=== PATIENT | male | born 1945 | race Caucasian/White ===

== ENCOUNTER 2019-07-12 13:07 | Emergency (ER) | payer MEDICARE, SELFPAY ==
[2019-07-12 13:15] VITALS: BP 162/85; PULSE 70; RESP 18; TEMP 36.6; O2SAT 98
--- NOTE | 2019-07-12 13:49 | ED_ITS ---
HPI - Skin/Abscess/Foreign Bdy <KENYON Martinez - Last Filed: 07/12/19 19:44> General Chief complaint: Skin/Abscess/Foreign Body Stated complaint: left hand injury today Time Seen by Provider: 07/12/19 13:21 Source: patient Mode of arrival: Ambulatory Limitations: no limitations History of Present Illness HPI narrative: 74-year-old male presents emergency department for a laceration o janey left palmar aspect of hand with a knife while shucking clams. Patient states his Tdap was last updated this year as he had a recent neck injury. Patient denies any numbness or tingling, denies any difficulty moving his hand. Patient denies any fevers, pus, purulent drainage, nausea, vomiting, diarrhea, or any other concerns. Related Data Allergies Allergy/AdvReac Type Severity Reaction Status Date / Time morphine AdvReac Intermediate ITCHING Verified 07/12/19 13:20 Review of Systems <KENYON Martinez - Last Filed: 07/12/19 19:44> Review of Systems Narrative: REVIEW OF SYSTEMS: GENERAL: Denies fever or chills. HENT: Denies head trauma. EYE: Denies double vision or vision loss. CARDIOVASCULAR: Denies syncope. MUSCULOSKELETAL: Denies weakness, or deformities. INTEGUMENTARY: Complains of left hand laceration, see HPI. NEURO: Denies numbness or tingling. Patient History <KENYON Martinez - Last Filed: 07/12/19 19:44> Social History Smoking Status: Former smoker Smoking Status: Former smoker alcohol intake frequency: 0-2 drinks per day Substance Use Type: marijuana Exam <KENYON Martinez - Last Filed: 07/12/19 19:44> Initial Vital Signs Initial Vital Signs: Vital Signs Temperature 97.8 F 07/12/19 13:15 Pulse Rate 70 07/12/19 13:15 Respiratory Rate 18 07/12/19 13:15 Blood Pressure 162/85 H 07/12/19 13:15 Pulse Oximetry 98 07/12/19 13:15 PHYSICAL EXAMINATION: GENERAL: Well groomed, alert, and cooperative. Answers questions promptly and appropriately. Vital signs noted. HENT: Normocephalic, atraumatic. RESPIRATORY: Normal respiratory rate, trachea midline, airway patent. No stridor, nasal flaring or accessory muscle use. MUSCULOSKELETAL: Normal gait and coordination. Equal tone and mass bilaterally. Equal fiscal accountant strength bilaterally, full range of motion of all fingers against resistance of flexion and extension of left hand. EXTREMITIES: CMS intact. Moves all extremities. SKIN: Warm, dry, soft, appropriate color for ethnicity. 8cm clean linear laceration noted to left proximal ulnar palm of hand. Small amount of adipose tissue noted. Bleeding controlled with pressure. Wound was irrigated and sutured as noted above. No foreign bodies identified. NEURO: Alert and Oriented X 3. Good coordination. PSYCH: Appropriate affect and mood. <Joselo Márquez MD - Last Filed: 07/13/19 15:20> Initial Vital Signs Initial Vital Signs: Vital Signs Temperature 97.8 F 07/12/19 13:15 Pulse Rate 70 07/12/19 13:15 Respiratory Rate 18 07/12/19 13:15 Blood Pressure 162/85 H 07/12/19 13:15 Pulse Oximetry 98 07/12/19 13:15 Procedures <KENYON Martinez - Last Filed: 07/12/19 19:44> Laceration Repair Laceration 1: Site: upper extremity Side (If applicable): left Size (cm): 8 Description: linear Depth: simple, single layer Local Anesthetic: lidocaine 1% and with bicarb Amount of anesthesia used (mL): 6 Pre-repair: wound explored and irrigated extensively (With 200ml of NS) Skin layer closed with: nylon Size (cm): 5-0 Number of sutures: 6 Technique: simple, interrupted Course <KENYON Martinez - Last Filed: 07/12/19 19:44> Course Course Narrative: Wound dressed with bacitracin, gauze placed on wound by nursing. Orders Ordered: Discontinued Medications Bacitracin (Bacitracin) 1 applic TOP NOW ONE Stop: 07/12/19 13:46 Last Admin: 07/12/19 14:29 Dose: 1 applic Documented by: CARY Lidocaine/Sodium Bicarbonate (Buffered Lidocaine 10 Ml Syr) 10 ml INJ NOW ONE Stop: 07/12/19 13:46 Last Admin: 07/12/19 14:29 Dose: 10 ml Documented by: CARY Vital Signs Vital signs: Vital Signs - 8 hr 07/12/19 13:15 07/12/19 14:36 Temperature 97.8 F Pulse Rate 70 68 Respiratory Rate 18 16 Blood Pressure 162/85 H 149/76 H Pulse Oximetry 98 99 <Joselo Márquez MD - Last Filed: 07/13/19 15:20> Orders Ordered: Discontinued Medications Bacitracin (Bacitracin) 1 applic TOP NOW ONE Stop: 07/12/19 13:46 Last Admin: 07/12/19 14:29 Dose: 1 applic Documented by: CARY Lidocaine/Sodium Bicarbonate (Buffered Lidocaine 10 Ml Syr) 10 ml INJ NOW ONE Stop: 07/12/19 13:46 Last Admin: 07/12/19 14:29 Dose: 10 ml Documented by: CARY Vital Signs Vital signs: Vital Signs - 8 hr 07/12/19 13:15 07/12/19 14:36 Temperature 97.8 F Pulse Rate 70 68 Respiratory Rate 18 16 Blood Pressure 162/85 H 149/76 H Pulse Oximetry 98 99 MDM - Skin/Abscess/Foreign Bdy <KENYON Martinez - Last Filed: 07/12/19 19:44> Medical Records Attestation: I reviewed the patient's medical records. Lab Data Attestation: I reviewed the patient's lab results. MDM Narrative Medical decision making narrative: This is a 74-year-old male presenting to the emergency department with a laceration to left hand. Simple laceration requiring suture repair due to depth and location. Subcu tissue was visualized, wound was irrigated, no foreign bodies visualized. Patient tolerated procedure well. No concern for tendon involvement due to location of wound and full fiscal accountant and finger strength. Patient was counseled extensively to monitor for signs of infection, follow-up instructions discussed. Patient agreed to plan of care verbalized understanding. Discharge Plan Departure Patient Disposition: Home Clinical Impression: Laceration Discharge Date/Time: 07/12/19 14:37 Instructions: DI for Laceration Repair Activity Restrictions/Additional Instructions: Thank you for entrusting me with your care today. As discussed, 6 sutures were placed in your hand, these will need to be removed in approximately 10 days. They can be removed by your primary care provider, any walk-in clinic, Urgent Care, or the emergency department. Please keep the area dry and clean. Keep the dressing in place for the next 24 hours, after that you may remove the dressing and wash the area with soap and water. Apply Neosporin or bacitracin to the area 1 to 2 times a day. Do not soak the laceration and water such as dishwater, hot tub, or any lakes/the ocean. No foreign bodies were found in your wound today. While there is low-risk for infection at this time, retained foreign bodies and infection are always possible with any cut or break in the skin. Please monitor the wound closely and be re-evaluated immediately if you develop any signs of infection such as pus, increasing redness, increasing pain, fevers, or any other concerns. Referrals: Tobi Fernandez MD [Primary Care Provider] -
[2019-07-12] MEDS: LIDO 1%/SOD BICARB 8.4% (10ML) 10 ML SYRINGE INJ (14:29)
[2019-07-12] MEDS: BACITRACIN OINT 0.9 GM PCKT 1 APPLIC TOP (14:29)
[2019-07-12 14:36] VITALS: BP 149/76; PULSE 68; RESP 16; O2SAT 99
== END 2019-07-12 14:37 | disposition home or self-care (01) ==
PROVIDERS: Emergency Provider Nurse Practitioner; PCP Family Medicine
DX: S61.412A Laceration without foreign body of left hand, initial encounter (principal); W26.0XXA Contact with knife, initial encounter
CPT/HCPCS: 12004; 99283

== ENCOUNTER 2019-09-11 18:33 | Emergency (ER) | payer OTHER, SELFPAY ==
[2019-09-11] VITALS (7 sets, daily range): BP systolic 132–158; BP diastolic 72–82; PULSE 60–67; RESP 17–21; TEMP 36.6; O2SAT 97–99; BMI 27.3
--- NOTE | 2019-09-11 18:45 | DI.CT.S_ITS ---
PROCEDURE: CT CHEST ABD PEL W CON INDICATIONS: Trauma TECHNIQUE: After the administration of intravenous contrast, 5 mm thick sections acquired from the lung apices to the symphysis. 2.5 mm thick coronal and sagittal reformats were acquired. Additional 7 mm thick coronal maximum intensity projection (MIP) reformats acquired through the lungs. Optional 10-minute delayed imaging may be performed from the kidneys to the bladder. For radiation dose reduction, the following was used: automated exposure control, adjustment of mA and/or kV according to patient size. COMPARISON: None. FINDINGS: Image quality: Excellent. CHEST: Lungs: No pulmonary contusions or lacerations. Scattered subsegmental atelectasis and/or scarring. No focal consolidation. No pneumothorax or hemothorax. Central and peripheral airways appear patent and normal in caliber. Mediastinum: No mediastinal hematomas. Heart size is normal. Coronary artery calcifications are present. No pericardial effusion. Marked enlargement of the central pulmonary arteries suggestive of chronic pulmonary arterial hypertension. Scattered vascular calcifications seen in the aorta. No mediastinal or hilar adenopathy. Esophagus is normal in caliber. No hiatal hernia. Chest wall: No rib fractures. No subcutaneous emphysema. No axillary or supraclavicular adenopathy. ABDOMEN: Solid organs: Liver is normal in size and enhancement, without lacerations. Gallbladder negative . Biliary system is non-dilated. Pancreas enhances normally, without transection. Spleen is normal in size and enhancement, without lacerations. No adrenal hematomas. Both kidneys enhance normally, without hydronephrosis or lacerations. Peritoneum and bowel: No free fluid or air. Unenhanced bowel loops demonstrate normal wall thickness and caliber. Colonic diverticulosis is seen without evidence of acute complication. Nodes and vessels: No retroperitoneal or mesenteric adenopathy. Aorta and inferior vena cava are normal in size and enhancement. Miscellaneous: No ventral hernias. PELVIS: Genitourinary: Bladder wall thickness is normal. Miscellaneous: No inguinal hernias or adenopathy. Chronic right 11th rib fracture with callus formation Diffuse spondylitic changes and facet arthropathy. IMPRESSION: No acute abnormality seen in the chest, abdomen or pelvis. Coronary artery disease. Enlargement of the central pulmonary arteries suggestive of pulmonary arterial hypertension. Additional chronic and incidental findings as above. Dictated by: Mikel Garland M.D. on 09/11/2019 at 19:39 Approved by: Mikel Garland M.D. on 09/11/2019 at 19:45
--- NOTE | 2019-09-11 18:45 | DI.CT.S_ITS ---
PROCEDURE: CT CERVICAL SPINE WO CON INDICATIONS: Trauma TECHNIQUE: Noncontrast 3 mm thick sections acquired from the skull base to the T4 level. Sagittal and coronal reformats were then constructed. For radiation dose reduction, the following was used: automated exposure control, adjustment of mA and/or kV according to patient size. COMPARISON: None. FINDINGS: Image quality: Excellent. Chronic dens fracture with screw fixation is noted. No definite bridging ossification There is also posterior spinal fixation from the level of C6-T1. Diffuse osteopenia. Multilevel degenerative endplate sclerosis and spurring. Diffuse facet arthropathy. Grade 1 anterolisthesis of C7 on T1 Soft tissues: Prevertebral soft tissues are normal in thickness. No paravertebral hematomas. No apical pneumothoraces. IMPRESSION: No acute fracture identified Postsurgical changes and chronic fractures as detailed above. Dictated by: Mikel Garland M.D. on 09/11/2019 at 19:35 Approved by: Mikel Garland M.D. on 09/11/2019 at 19:39
--- NOTE | 2019-09-11 18:45 | DI.CT.S_ITS ---
PROCEDURE: CT HEAD/BRAIN WO CON INDICATIONS: Trauma TECHNIQUE: Noncontrast 4.5 mm thick angled axial sections acquired from the foramen magnum to the vertex, with coronal and sagittal reformats. For radiation dose reduction, the following was used: automated exposure control, adjustment of mA and/or kV according to patient size. COMPARISON: None. FINDINGS: Image quality: Excellent. A presumed parenchymal hemorrhages seen in the anterior left frontal lobe on image 30/2 measuring 7 mm. Additional areas of parenchymal and cortical surface hyperdensity are seen for example image 26/2 involving the anterior right frontal lobe, and left frontal lobe on image 22/2. There is also presumed extra-axial blood within both sylvian fissures. No midline shift is seen. The basal cisterns appear grossly preserved. Skull and face: Left frontal and periorbital scalp swelling. Sinuses: Visualized sinuses and mastoids are clear. IMPRESSION: Multifocal small areas of acute intraparenchymal and extra-axial hemorrhage as detailed above. Anterior left frontal scalp swelling. Critical findings were personally telephoned and discussed with Dr. Fernández in the emergency department at 1946 hours 09/11/19. Dictated by: Mikel Garland M.D. on 09/11/2019 at 19:30 Approved by: Mikel Garland M.D. on 09/11/2019 at 19:47
--- NOTE | 2019-09-11 18:56 | ED.TRAUMA ---
HPI - Trauma General Chief Complaint: Trauma Stated Complaint: Fall Time Seen by Provider: 09/11/19 18:40 Source: EMS Mode of arrival: EMS Limitations: altered mental status History of Present Illness HPI narrative: 74M former smoker with history of dementia and a recent cervical surgery presents by EMS for of fall with head injury. Patient's medical history is very unclear as he is a poor historian. He was getting off of his boat and had a witnessed fall in which he tripped, fell and struck his head and had a loss of consciousness of upwards of 3 minutes. Upon waking use a bit groggy and confused but after a few minutes return to his baseline, this is confirmed by his nephew who actually saw the fall. He seemed to be in his normal state of health prior to this. He is already in an [place] C-collar given the recent surgery on his neck performed at [facility] per the nephew. Patient has a hematoma on his left forehead and left hip but denies much in the way of any pain elsewhere. He has had no chest pain or shortness of breath. He denies any nausea, vomiting or diarrhea since. He is activated as a modified trauma given a fall with head injury and unclear medical history with prolonged loss of consciousness. Upon arrival he states that maybe he is on a blood thinner but is unsure which 1. Again, he has a very poor historian, his nephew was apparently on the way. Td current as of August hospitalization. NO suspicion of COVID-19, no known exposure to positive persons MD complaint: fall and injury Onset (ago): hour(s) Loss of Consciousness: yes Location: head and face Location - Extremities: Left: hip Severity: moderate Context: fall Associated symptoms: confusion Treatments prior to arrival: cervical collar and spinal immobilization Related Data Allergies Allergy/AdvReac Type Severity Reaction Status Date / Time morphine AdvReac Intermediate ITCHING Verified 07/12/19 13:20 Review of Systems Constitutional Constitutional: Denies chills, Denies fatigue, Denies fever(s), Denies frequent falls, Denies lethargy and Denies weakness Eyes Eyes: Denies change in vision, Denies eye discharge, Denies irritation and Denies loss of vision ENT Ears, Nose, Mouth, and Throat: Denies change in voice, Denies dizziness, Denies neck pain, Denies sore throat and Denies throat swelling Cardiovascular Cardiovascular: Denies chest pain, Denies irregular heart rhythm, Denies lightheadedness, Denies palpitations, Denies dyspnea, Denies dyspnea on exertion and Denies orthopnea Respiratory Respiratory: Denies cough, Denies dyspnea, Denies dyspnea on exertion and Denies wheezing Gastrointestinal Gastrointestinal: Denies abdominal pain, Denies change in bowel habits, Denies diarrhea, Denies nausea and Denies vomiting Musculoskeletal Musculoskeletal: Denies neck pain and Denies numbness Integumentary/Breasts Skin/Breast: Denies pruritus, Denies erythema, Denies rash and Reports wounds Neurologic Neurologic: Denies behavioral changes, Denies confusion, Denies dizziness, Denies frequent falls, Denies loss of vision, Denies numbness and Denies weakness Psychiatric Psychiatric: Denies anxiety, Denies behavioral changes, Denies confusion, Denies depression, Denies homicidal ideation and Denies suicidal ideation Endocrine Endocrine: Denies fatigue, Denies flushing and Denies palpitations Hematologic/Lymphatic Hematologic/Lymphatic: Denies easy bruising Allergic/Immunologic Allergic/Immunologic: Denies urticaria, Denies throat swelling and Denies wheezing Patient History Social History Smoking Status: Former smoker Smoking Status: Former smoker alcohol intake frequency: 0-2 drinks per day Substance Use Type: marijuana Exam Narrative Exam Narrative: GENERAL: [74] year old patient appears stated age. Well-nourished, well-developed patient, in mild distress. HEAD: Contusion/abrasion. No evidence of depressed skull fracture EYES: Pupils equal round and reactive. Extraocular motions intact. No scleral icterus. No injection or drainage. ENT: Nose without bleeding, purulent drainage. No nasal septal hematoma. Throat without erythema, tonsillar hypertrophy or exudate. Airway patent. No hemotympanum NECK: Trachea midline. Non tender CARDIOVASCULAR: Regular rate and rhythm without murmurs, gallops, or rubs. RESPIRATORY: Clear to auscultation. Breath sounds equal bilaterally. No wheezes, rales, or rhonchi. GASTROINTESTINAL: Abdomen soft, non-tender, nondistended. EXTREMITIES: Mild edema, long linear superficial abrasions to left hip. No shortening or external rotation. NV intact. BACK: Nontender without deformity or crepitance. No flank tenderness. NEURO: AOx3. SKIN: No rash or erythema of visible areas Initial Vital Signs Initial Vital Signs: Vital Signs Temperature 98 F 09/11/19 18:59 Pulse Rate 61 09/11/19 18:59 Respiratory Rate 18 09/11/19 18:59 Blood Pressure 151/81 H 09/11/19 18:59 Pulse Oximetry 99 09/11/19 18:59 Scores GCS [place] coma scale eye opening: Spontaneous Veronica coma scale verbal response: Confused [place] coma scale motor response: Obey commands [place] coma scale total score: 14 Course Orders Ordered: ED Orders 09/11/19 18:44 Urine Drug Screen, Rapid Stat EKG-12 Lead Stat 09/11/19 18:45 CT cervical spine wo con Stat CT chest abd pel w con Stat CT head/brain wo con Stat 09/11/19 19:06 Complete Blood Count AUTO DIFF Stat Comprehensive Metabolic Panel Stat Ethanol (ETOH) Stat Lipase Stat Prothrombin Time INR Stat Troponin & CK Cardiac Panel Stat Type and Screen Stat Fentanyl (Sublimaze) 50 mcg IV Q1H PRN PRN Reason: Pain, Severe (7-10) Consultations Consultation #1: called ex- Kika Abad ([phone]). Caregiver. Surgery on C2/C3 August 19 Zully Scott. She helps him make his medical decisions. DNR per her. she has been called with update regarding diagnosis and plan. Consultation #2: call to Trauma at [facility] (Mitch) he has reviewed images, in agreement with plan, requests transfer to ED. call to ED (Live) Prov, happy to accept. Vital Signs Vital signs: Vital Signs - 8 hr 09/11/19 18:59 09/11/19 19:00 09/11/19 19:30 Temperature 98 F Pulse Rate 61 60 61 Respiratory Rate 18 18 18 Blood Pressure 151/81 H 141/72 H 158/77 H Pulse Oximetry 99 97 98 MDM - Trauma Lab Data Result diagrams: 09/11/19 19:06 09/11/19 19:06 Labs: Lab Results 09/11/19 09/11/19 09/11/19 Range/Units 19:06 19:06 19:06 WBC 7.3 (4.5-11.0) X10^3/uL RBC 3.58 L (4.5-5.9) X10^6/uL Hgb 11.5 L (13.5-17.5) g/dL Hct 33.5 L (41-53) % MCV 93.6 (80-100) fL MCH 32.1 (26-34) PG MCHC 34.2 (30-36) % RDW 13.0 (11.6-14.8) % Plt Count 230 (150-400) X10^3/uL Neut % (Auto) 66.8 (50-75) % Lymph % (Auto) 23.4 L (25-40) % [place] % (Auto) 8.4 (3-14) % Eos % (Auto) 0.8 L (2-4) % Baso % (Auto) 0.6 (0-2) % Neut # (Auto) 4900 (6762-1981) /uL Lymph # (Auto) 1700 (7781-6345) /uL [place] # (Auto) 600 (0-900) /uL Eos # (Auto) 100 (0-450) /uL Baso # (Auto) 0 (0-100) /uL PT 11.5 (10.1-12.7) SECONDS INR 1.0 (0.9-1.3) Sodium 135 L (137-145) mmol/L Potassium 4.1 (3.4-5.1) mmol/L Chloride 102 (98-107) mmol/L Carbon Dioxide 29 (22-32) mmol/L BUN 21 H (9-20) mg/dL Creatinine 0.64 L (0.66-1.25) mg/dL Estimated GFR > 60.0 (>60) mL/min BUN/Creatinine Ratio 32.8 H (6-22) Glucose 116 H (80-110) mg/dL Calcium 8.9 (8.4-10.2) mg/dL Total Bilirubin 0.3 (0.2-1.3) mg/dL AST 25 (17-59) IU/L ALT 12 (<50) IU/L Alkaline Phosphatase 83 (38-126) U/L Total Creatine Kinase 95 (55-170) U/L CK-MB (CK-2) TNP CK-MB (CK-2) Rel Index TNP Troponin I < 0.012 (0.01-0.034) ng/mL Total Protein 6.0 L (6.3-8.2) g/dL Albumin 3.8 (3.5-5.0) g/dL Globulin 2.2 (1.7-4.1) g/dL Albumin/Globulin Ratio 1.7 (1.0-2.8) Lipase 114 (23-300) U/L Ethyl Alcohol < 10 ( - 10) mg/dL Blood Type Antibody Screen 09/11/19 Range/Units 19:06 WBC (4.5-11.0) X10^3/uL RBC (4.5-5.9) X10^6/uL Hgb (13.5-17.5) g/dL Hct (41-53) % MCV (80-100) fL MCH (26-34) PG MCHC (30-36) % RDW (11.6-14.8) % Plt Count (150-400) X10^3/uL Neut % (Auto) (50-75) % Lymph % (Auto) (25-40) % [place] % (Auto) (3-14) % Eos % (Auto) (2-4) % Baso % (Auto) (0-2) % Neut # (Auto) (0014-3588) /uL Lymph # (Auto) (4592-0748) /uL [place] # (Auto) (0-900) /uL Eos # (Auto) (0-450) /uL Baso # (Auto) (0-100) /uL PT (10.1-12.7) SECONDS INR (0.9-1.3) Sodium (137-145) mmol/L Potassium (3.4-5.1) mmol/L Chloride (98-107) mmol/L Carbon Dioxide (22-32) mmol/L BUN (9-20) mg/dL Creatinine (0.66-1.25) mg/dL Estimated GFR (>60) mL/min BUN/Creatinine Ratio (6-22) Glucose (80-110) mg/dL Calcium (8.4-10.2) mg/dL Total Bilirubin (0.2-1.3) mg/dL AST (17-59) IU/L ALT (<50) IU/L Alkaline Phosphatase (38-126) U/L Total Creatine Kinase (55-170) U/L CK-MB (CK-2) CK-MB (CK-2) Rel Index Troponin I (0.01-0.034) ng/mL Total Protein (6.3-8.2) g/dL Albumin (3.5-5.0) g/dL Globulin (1.7-4.1) g/dL Albumin/Globulin Ratio (1.0-2.8) Lipase (23-300) U/L Ethyl Alcohol ( - 10) mg/dL Blood Type O Positive Antibody Screen Negative Point of Care Testing Glucose POC [address] scan - head: Radiologist's Impression: Chart Viewer Diagnostics DATE TYPE STATUS REF RANGE/AUTHOR Hx 09/11/19 18:45 DadaMikel 09/11/19 18:45 GarlandMikel 09/11/19 18:45 Mikel Garland Harvey A 74, M0 1945 [facility], Main ED R11 180.34cm 88.904kg BMI: 27.3kg/m? Trauma Search Chart No Data to Display No Data to Display ITCHING ONSET Today 19:30 Charles Abad 74 M 1945 [place] [address] CT Scan Report Signed Patient: Charles Abad AMR#: [id number] : 7Acct:[id number] Age/Sex: 74 / MDate of Service: 09/11/19 Loc: ED Accession Number: [id number] Procedure: CT head/brain wo con Ordering Provider: Michoacano Fernández D.O. PROCEDURE: CT HEAD/BRAIN WO CON INDICATIONS: Trauma TECHNIQUE: Noncontrast 4.5 mm thick angled axial sections acquired from the foramen magnum to the vertex, with coronal and sagittal reformats. For radiation dose reduction, the following was used: automated exposure control, adjustment of mA and/or kV according to patient size. COMPARISON: None. FINDINGS: Image quality: Excellent. A presumed parenchymal hemorrhages seen in the anterior left frontal lobe on image 30/2 measuring 7 mm. Additional areas of parenchymal and cortical surface hyperdensity are seen for example image 26/2 involving the anterior right frontal lobe, and left frontal lobe on image 22/2. There is also presumed extra-axial blood within both sylvian fissures. No midline shift is seen. The basal cisterns appear grossly preserved. Skull and face: Left frontal and periorbital scalp swelling. Sinuses: Visualized sinuses and mastoids are clear. IMPRESSION: Multifocal small areas of acute intraparenchymal and extra-axial hemorrhage as detailed above. Anterior left frontal scalp swelling. Critical findings were personally telephoned and discussed with Dr. Fernández in the emergency department at 1946 hours 09/11/19. Dictated by: Mikel Garland M.D. on 09/11/2019 at 19:30 CT scan - chest: Radiologist's Impression: Chart Viewer Diagnostics DATE TYPE STATUS REF RANGE/AUTHOR Hx 09/11/19 18:45 Dada,Mikel 09/11/19 18:45 Dada,Mikel 09/11/19 18:45 DadaMikelCharlse Coleman 74, M0 1945 [facility], Main ED R11 180.34cm 88.904kg BMI: 27.3kg/m? Trauma Search Chart No Data to Display No Data to Display ITCHING ONSET Today 19:30 Charles Abad 74 M 1945 [place] [address] CT Scan Report Signed Patient: Charles Abad AMR#: [id number] : 7Acct:[id number] Age/Sex: 74 / MDate of Service: 09/11/19 Loc: ED Accession Number: [id number] Procedure: CT chest abd pel w con Ordering Provider: Michoacano Fernández D.O. PROCEDURE: CT CHEST ABD PEL W CON INDICATIONS: Trauma TECHNIQUE: After the administration of intravenous contrast, 5 mm thick sections acquired from the lung apices to the symphysis. 2.5 mm thick coronal and sagittal reformats were acquired. Additional 7 mm thick coronal maximum intensity projection (MIP) reformats acquired through the lungs. Optional 10-minute delayed imaging may be performed from the kidneys to the bladder. For radiation dose reduction, the following was used: automated exposure control, adjustment of mA and/or kV according to patient size. COMPARISON: None. FINDINGS: Image quality: Excellent. CHEST: Lungs: No pulmonary contusions or lacerations. Scattered subsegmental atelectasis and/or scarring. No focal consolidation. No pneumothorax or hemothorax. Central and peripheral airways appear patent and normal in caliber. Mediastinum: No mediastinal hematomas. Heart size is normal. Coronary artery calcifications are present. No pericardial effusion. Marked enlargement of the central pulmonary arteries suggestive of chronic pulmonary arterial hypertension. Scattered vascular calcifications seen in the aorta. No mediastinal or hilar adenopathy. Esophagus is normal in caliber. No hiatal hernia. Chest wall: No rib fractures. No subcutaneous emphysema. No axillary or supraclavicular adenopathy. ABDOMEN: Solid organs: Liver is normal in size and enhancement, without lacerations. Gallbladder negative . Biliary system is non-dilated. Pancreas enhances normally, without transection. Spleen is normal in size and enhancement, without lacerations. No adrenal hematomas. Both kidneys enhance normally, without hydronephrosis or lacerations. Peritoneum and bowel: No free fluid or air. Unenhanced bowel loops demonstrate normal wall thickness and caliber. Colonic diverticulosis is seen without evidence of acute complication. Nodes and vessels: No retroperitoneal or mesenteric adenopathy. Aorta and inferior vena cava are normal in size and enhancement. Miscellaneous: No ventral hernias. PELVIS: Genitourinary: Bladder wall thickness is normal. Miscellaneous: No inguinal hernias or adenopathy. Chronic right 11th rib fracture with callus formation Diffuse spondylitic changes and facet arthropathy. IMPRESSION: No acute abnormality seen in the chest, abdomen or pelvis. Coronary artery disease. Enlargement of the central pulmonary arteries suggestive of pulmonary arterial hypertension. Additional chronic and incidental findings as above. Dictated by: Mikel Garland M.D. on 09/11/2019 at 19:39 Approved by: Mikel Garland M.D. on 09/11/2019 at 19:45 CT - cervical spine: Radiologist's Impression: Charles Abad Daija Aparicio M 1945 [place] [address] CT Scan Report Signed Patient: Charles Abad [facility]#: [id number] : 7Acct:[id number] Age/Sex: 74 / MDate of Service: 09/11/19 Loc: ED Accession Number: [id number] Procedure: CT cervical spine wo con Ordering Provider: Michoacano Fernández D.O. PROCEDURE: CT CERVICAL SPINE WO CON INDICATIONS: Trauma TECHNIQUE: Noncontrast 3 mm thick sections acquired from the skull base to the T4 level. Sagittal and coronal reformats were then constructed. For radiation dose reduction, the following was used: automated exposure control, adjustment of mA and/or kV according to patient size. COMPARISON: None. FINDINGS: Image quality: Excellent. Chronic dens fracture with screw fixation is noted. No definite bridging ossification There is also posterior spinal fixation from the level of C6-T1. Diffuse osteopenia. Multilevel degenerative endplate sclerosis and spurring. Diffuse facet arthropathy. Grade 1 anterolisthesis of C7 on T1 Soft tissues: Prevertebral soft tissues are normal in thickness. No paravertebral hematomas. No apical pneumothoraces. IMPRESSION: No acute fracture identified Postsurgical changes and chronic fractures as detailed above. Dictated by: Mikel Garland M.D. on 09/11/2019 at 19:35 Approved by: Mikel Garland M.D. on 09/11/2019 at 19:39 Critical Care Time Critical Care Time Critical Care Time: Yes Total Critical Care Time: 30 Attestation: The high probability of a clinically significant, sudden or life threatening deterioration of the [NV] system(s) required my full and direct attention, intervention and personal management. The aggregate critical care time was [30] minutes. This time is in addition to time spent performing reported procedures but includes the following: [x] Data Review and interpretation [x] Patient assessment and monitoring of vital signs [x] Documentation [x] Medication orders and management Discharge Plan Departure Patient Disposition: [facility] Clinical Impression: Intracranial hemorrhage Contusion of hip, left Qualifiers: Encounter type: initial encounter Qualified Code(s): S70.02XA - Contusion of left hip, initial encounter Abrasion of face Qualifiers: Encounter type: initial encounter Qualified Code(s): S00.81XA - Abrasion of other part of head, initial encounter Referrals: Tobi Fernandez MD [Primary Care Provider] -
[2019-09-11 19:16] LABS: Add Manual Diff / Slide Review NO; Basophils Absolute Auto 0 /uL (0-100); Basophils Percent Auto 0.6 % (0-2); Eosinophils Absolute Auto 100 /uL (0-450); Eosinophils Percent Auto 0.8 % (2-4); Hematocrit 33.5 % (41-53); Hemoglobin 11.5 g/dL (13.5-17.5); Lymphocytes Absolute Auto 1700 /uL (1100-4500); Lymphocytes Percent Auto 23.4 % (25-40); Mean Corpuscular HGB Conc 34.2 % (30-36); Mean Corpuscular Hemoglobin 32.1 PG (26-34); Mean Corpuscular Volume 93.6 fL (80-100); Monocytes Absolute Auto 600 /uL (0-900); Monocytes Percent Auto 8.4 % (3-14); Neutrophils Absolute Auto 4900 /uL (1500-7000); Neutrophils Percent Auto 66.8 % (50-75); Platelet Count 230 X10^3/uL (150-400); Red Blood Cell Count 3.58 X10^6/uL (4.5-5.9); White Blood Cell Count 7.3 X10^3/uL (4.5-11.0)
[2019-09-11 19:28] LABS: Prothrombin Time 11.5 SECONDS (10.1-12.7)
[2019-09-11 19:33] LABS: Alanine Aminotransferase 12 IU/L (<50); Albumin 3.8 g/dL (3.5-5.0); Albumin Globulin Ratio 1.7 (1.0-2.8); Alkaline Phosphatase 83 U/L (38-126); Aspartate Aminotransferase 25 IU/L (17-59); BUN Creatinine Ratio 32.8 (6-22); Bilirubin Total 0.3 mg/dL (0.2-1.3); Blood Urea Nitrogen 21 mg/dL (9-20); Calcium 8.9 mg/dL (8.4-10.2); Carbon Dioxide 29 mmol/L (22-32); Chloride 102 mmol/L (98-107); Creatine Kinase 95 U/L (55-170); Estimated Glomerular Filt Rate > 60.0 mL/min (>60); Ethanol (ETOH) < 10 mg/dL; Globulin 2.2 g/dL (1.7-4.1); Glucose 116 mg/dL (80-110); HEMOLYSIS 26 (0-50); Lipase 114 U/L (23-300); Potassium 4.1 mmol/L (3.4-5.1); Sodium 135 mmol/L (137-145)
[2019-09-11 19:44] LABS: Troponin I < 0.012 ng/mL (0.01-0.034)
[2019-09-11] MEDS: fentaNYL 100 MCG/2 ML INJ 50 MCG IV (20:31)
== END 2019-09-11 21:04 | disposition short-term general hospital (02) ==
PROVIDERS: Emergency Provider Emergency Medicine; PCP Family Medicine
DX: S06.301A Unspecified focal traumatic brain injury with loss of consciousness of 30 minutes or less, initial encounter (principal); S70.02XA Contusion of left hip, initial encounter; W19.XXXA Unspecified fall, initial encounter
CPT/HCPCS: 36415; 70450; 71260; 72125; 74177; 80053; 80320; 82550; 82962; 83690; 84484; 85025; 85610; 86850; 86900; 86901; 93005; 96374; 99285; 99291; G0390; J3010; Q9967